=== PATIENT | female | born 1975 | race Caucasian/White ===

== ENCOUNTER → 2017-12-24 | Outpatient (CLI) | payer BC ==
--- NOTE | 2017-12-25 14:20 | RADIOLOGY IMAGING REPORT ---
FACILITY: [facility] PATIENT NAME: CLIFFORD DE SANTIAGO : [id number] MR: [id number] V: [id number] EXAM DATE: [id number] ORDERING PHYSICIAN: DELIO GUIDRY TECHNOLOGIST: Kyra Ely PROCEDURE:BILATERAL DIAGNOSTIC DIGITAL MAMMOGRAM WITH CAD ASSISTED INTERPRETATION & 3D TOMOSYNTHESIS COMPARISON:None. INDICATIONS:BASELINE, LT RETROAREOLAR LUMP FINDINGS: Small to moderate amount of fibroglandular tissue is seen throughout the breasts. In the approximate 12 o'clock position of the Right breast there is an ovoid nodular density which appeared to be represented by a 7.8 x 6.6 x 3.4mm ovoid hypoechoic nodule in the 12 o'clock position of the Right breast 4cm from the nipple. There are also at least 2 nodular densities in the upper outer quadrant of the Left breast on Today's mammogram although no sonographic correlate could be found. There was a 7.8mm cyst in the Left retroareolar breast which would account for patient's palpable findings. DIAGNOSTIC CATEGORY 3--PROBABLY BENIGN FINDING. RECOMMENDATIONS: SIX MONTH FOLLOW-UP DIAGNOSTIC MAMMOGRAM: BILATERAL BREASTS. SIX MONTH FOLLOW-UP ULTRASOUND: RIGHT BREAST. IMPRESSION: BIRADS 3: Probably benign finding. A 6 month follow-up bilateral mammogram is recommended to evaluate the nodular densities in the upper outer quadrant of the Left breast with no sonographic correlate could be identified. Follow-up for the nodular density in the 12 o'clock position of the Right breast also recommended in addition to a Right breast Ultrasound. Dictated by: Kaylie John M.D. on 12/24/2017 at 17:33 Transcribed by: DEISY on 12/25/2017 at 9:33 Approved by: Kaylie John M.D. on 12/25/2017 at 14:19 [facility]
--- NOTE | 2017-12-25 14:21 | RADIOLOGY IMAGING REPORT ---
FACILITY: [facility] [place] PATIENT NAME: CLIFFORD DE SANTIAGO : [id number] MR: [id number] V: [id number] EXAM DATE: [id number] ORDERING PHYSICIAN: DELIO GUIDRY TECHNOLOGIST: Valentino Velasquez RDMS, RDCS PROCEDURE:US BILATERAL BREAST COMPLETE COMPARISON:None. INDICATIONS:LT BREAST LUMP FINDINGS: There is a 7.8mm cyst in the Left retroareolar breast which accounts for patient's palpable finding. No sonographic correlate could be identified to account for the nodular densities in the upper outer quadrant of the Left breast as seen on Today's mammogram. In the 12 o'clock position of the Right breast there is a 6.6 x 7.8 x 3.4mm well circumscribed ovoid hypoechoic nodule that is wider than tall with no acoustic shadowing which may account for the nodular density seen on Today's mammogram. In the Right breast 1 o'clock position also incidentally noted is a 2.8mm cyst. DIAGNOSTIC CATEGORY 3--PROBABLY BENIGN FINDING. RECOMMENDATIONS: SIX MONTH FOLLOW-UP DIAGNOSTIC MAMMOGRAM: BILATERAL BREASTS. SIX MONTH FOLLOW-UP ULTRASOUND: RIGHT BREAST. IMPRESSION: BIRADS 3: Probably benign finding. A bilateral mammogram is recommended 6 months as discussed on Today's mammogram report in addition to a Right breast Ultrasound to evaluate the solid hypoechoic nodule in the 12 o'clock position. Dictated by: Kaylie John M.D. on 12/24/2017 at 17:35 Transcribed by: DEISY on 12/25/2017 at 9:42 Approved by: Kaylie John M.D. on 12/25/2017 at 14:19 [facility]
== END ==
LOC: MAMO 10:21
PROVIDERS: ATTEND Physician Assistant
DX: N60.02 Solitary cyst of left breast (principal); N60.01 Solitary cyst of right breast
CPT/HCPCS: 77062; 77066